=== PATIENT | female | born 1990 | race Caucasian/White ===

== ENCOUNTER 2016-12-15 07:05 | Emergency (ER) | payer SELFPAY ==
[~2016-12-15] VITALS: Ht 170.2 cm; Wt 49.9 kg
[2016-12-15 07:11] VITALS: BP 117/77
== END 2016-12-15 07:55 | disposition home or self-care (01) ==
LOC: ER 07:08
DX: S61.412A Laceration without foreign body of left hand, initial encounter (principal); W25.XXXA Contact with sharp glass, initial encounter; Y93.89 Activity, other specified; Y92.89 Other specified places as the place of occurrence of the external cause; Y99.9 Unspecified external cause status
CPT/HCPCS: 12001; 99283; A4606; A6402; Z7610

== ENCOUNTER 2016-12-18 16:03 | Emergency (ER) | payer BC ==
[~2016-12-18] VITALS: Ht 170.2 cm; Wt 49.9 kg
[2016-12-18 16:20] VITALS: BP 111/69
== END 2016-12-18 16:58 | disposition home or self-care (01) ==
LOC: ER 16:06
DX: S61.411D Laceration without foreign body of right hand, subsequent encounter (principal)
CPT/HCPCS: A4606; Z7502; Z7610